=== PATIENT | female | born 1950 | race Caucasian/White ===

== ENCOUNTER 2016-11-13 14:36 | Inpatient (IN) | payer MEDICARE, OTHER ==
[2016-11-13] MEDS ORDERED: PREDNISONE5 M1 PO (15:12)
[2016-11-13] MEDS ORDERED: VENTOLIN HFA18 G2 INH (15:12)
[2016-11-13] MEDS ORDERED: VITAMIN D32000 UNI2 PO (15:12)
[2016-11-13] MEDS ORDERED: SERTRALINE HCL100 M5 PO (15:12)
[2016-11-13] MEDS ORDERED: ZYRTEC10 M7 PO (15:13)
[2016-11-13] MEDS ORDERED: COUMADIN5 M2 PO ×2 (15:13→15:34)
[2016-11-13] MEDS ORDERED: SYNTHROID150 MC1 PO (15:13)
[2016-11-13] MEDS ORDERED: PLAQUENIL200 M1 PO (15:13)
[2016-11-13] MEDS ORDERED: ADVAIR 25028 BLISTE1 INH (15:35)
[2016-11-13] MEDS ORDERED: IPRAT-ALBUT 0.5-3 ML INH (15:36)
[2016-11-13] MEDS ORDERED: ALBUTEROL2.5 MG/3 M INH (15:36)
[2016-11-13] MEDS ORDERED: ASPIRIN EC81 MG PO (15:40)
[2016-11-13] MEDS ORDERED: CIMZIA400 MG/21 SC (15:40)
[2016-11-13 16:13] LABS: BASO % 0.6 % (0-2); BASO ABSOLUTE COUNT 0.1 tho/cmm (0.0-0.2); EOS % 0.5 % (0-7); EOSINOPHIL ABSOLUTE COUNT 0.1 tho/cmm (0.0-0.7); HCT-HEMATOCRIT 46.6 % (34.0-49.0); HGB-HEMOGLOBIN 15.5 gm/dl (12.0-15.5); IMMATURE GRANULOCYTES ABSOLUTE 0.13 tho/cmm (0-0.03); IMMATURE GRANULOCYTES PERCENT 1.1 % (0-0.3); LYMPH % 13.4 % (20-45); LYMPH ABSOLUTE COUNT 1.6 tho/cmm (0.8-4.5); MCH (MEAN CORPUSCULAR HGB) 29.5 pg (28.0-32.0); MCHC MEAN CORPUSCULAR HGB CONC 33.3 % (32.0-36.0); MCV (MEAN CELL VOLUME) 88.8 fl (82.0-96.0); MONOCYTE ABSOLUTE COUNT 0.5 tho/cmm (0.0-1.2); NEUTROPHIL ABSOLUTE COUNT 9.8 tho/cmm (1.6-8.0); NEUTROPHIL-AUTOMATED 9.8 tho/cmm (1.6-8.0); NEUTROPHILS % 80.4 % (40-80); PLATELET COUNT 357 tho/cmm (150-450); RED BLOOD COUNT 5.25 mil/cmm (4.00-5.20); RED CELL DISTRIBUTION WIDTH 14.5 % (12.4-16.4); WHITE BLOOD COUNT 12.2 tho/cmm (4.0-10.0)
[2016-11-13 16:18] LABS: ANION GAP 13 mmol/L (0-20); BLOOD UREA NITROGEN 9 mg/dl (6-24); CALCIUM 9.1 mg/dl (8.5-10.5); CARBON DIOXIDE-VENOUS 28 mmol/L (22-32); CHLORIDE 103 mmol/l (96-110); CREATININE 0.86 mg/dl (0.50-1.10); GLUCOSE 156 mg/dL (70-110); POTASSIUM 4.1 mmol/L (3.7-5.1); SODIUM 140 mmol/L (135-145); eGFR VALUE FOR BLACK 81 mL/Min
[2016-11-13 16:43] LABS: WBC MORPHOLOGY VARIANT LYMPHS
[2016-11-13 17:01] LABS: INR 2.4 INR (0.9-1.1)
--- NOTE | 2016-11-13 20:30 | NUR ---
VIRTUAL CARE NOTE: PT. IN BED WITH O2 ON, STATES SHE'S FEELING OKAY AND DOESN'T HAVE ANY NEEDS OR QUESTIONS AT THIS TIME. INSTRUCTED TO CALL FOR FUTURE NEEDS. STATES VERBAL AGREEMENT.
[2016-11-14 04:52] LABS: BASO % 0.5 % (0-2); BASO ABSOLUTE COUNT 0.1 tho/cmm (0.0-0.2); HCT-HEMATOCRIT 44.9 % (34.0-49.0); HGB-HEMOGLOBIN 14.7 gm/dl (12.0-15.5); IMMATURE GRANULOCYTES ABSOLUTE 0.18 tho/cmm (0-0.03); IMMATURE GRANULOCYTES PERCENT 1.5 % (0-0.3); LYMPH % 16.1 % (20-45); MCH (MEAN CORPUSCULAR HGB) 29.3 pg (28.0-32.0); MCHC MEAN CORPUSCULAR HGB CONC 32.7 % (32.0-36.0); MCV (MEAN CELL VOLUME) 89.4 fl (82.0-96.0); MEAN PLATELET VOLUME 9.6 cmc (9.4-12.4); MONO % 4.4 % (0-12); MONOCYTE ABSOLUTE COUNT 0.5 tho/cmm (0.0-1.2); NEUTROPHIL ABSOLUTE COUNT 9.6 tho/cmm (1.6-8.0); NEUTROPHIL-AUTOMATED 9.6 tho/cmm (1.6-8.0); NEUTROPHILS % 77.5 % (40-80); PLATELET COUNT 334 tho/cmm (150-450); RED BLOOD COUNT 5.02 mil/cmm (4.00-5.20); RED CELL DISTRIBUTION WIDTH 14.7 % (12.4-16.4); WHITE BLOOD COUNT 12.4 tho/cmm (4.0-10.0)
[2016-11-14 05:03] LABS: INR 3.1 INR (0.9-1.1); PROTHROMBIN TIME 36.8 SECONDS (9.0-13.6)
[2016-11-14 05:12] LABS: BLOOD UREA NITROGEN 11 mg/dl (6-24); CALCIUM 8.3 mg/dl (8.5-10.5); CARBON DIOXIDE-VENOUS 29 mmol/L (22-32); CHLORIDE 108 mmol/l (96-110); GLUCOSE 118 mg/dL (70-110); SODIUM 144 mmol/L (135-145); eGFR VALUE FOR BLACK 88 mL/Min
[2016-11-14 05:24] LABS: ANION GAP 12 mmol/L (0-20); POTASSIUM 5.1 mmol/L (3.7-5.1)
[2016-11-15 05:58] LABS: PROTHROMBIN TIME 23.9 SECONDS (9.0-13.6)
[2016-11-15 06:01] LABS: BASO % 0.1 % (0-2); HCT-HEMATOCRIT 44.4 % (34.0-49.0); HGB-HEMOGLOBIN 14.6 gm/dl (12.0-15.5); IMMATURE GRANULOCYTES ABSOLUTE 0.28 tho/cmm (0-0.03); IMMATURE GRANULOCYTES PERCENT 1.8 % (0-0.3); LYMPH % 10.9 % (20-45); LYMPH ABSOLUTE COUNT 1.7 tho/cmm (0.8-4.5); MCH (MEAN CORPUSCULAR HGB) 29.2 pg (28.0-32.0); MCHC MEAN CORPUSCULAR HGB CONC 32.9 % (32.0-36.0); MCV (MEAN CELL VOLUME) 88.8 fl (82.0-96.0); MEAN PLATELET VOLUME 9.8 cmc (9.4-12.4); MONO % 2.8 % (0-12); MONOCYTE ABSOLUTE COUNT 0.4 tho/cmm (0.0-1.2); NEUTROPHIL ABSOLUTE COUNT 12.9 tho/cmm (1.6-8.0); NEUTROPHIL-AUTOMATED 12.9 tho/cmm (1.6-8.0); NEUTROPHILS % 84.4 % (40-80); PLATELET COUNT 362 tho/cmm (150-450); RED CELL DISTRIBUTION WIDTH 14.6 % (12.4-16.4); WHITE BLOOD COUNT 15.3 tho/cmm (4.0-10.0)
[2016-11-15 06:03] LABS: ANION GAP 11 mmol/L (0-20); BLOOD UREA NITROGEN 15 mg/dl (6-24); CALCIUM 8.6 mg/dl (8.5-10.5); CARBON DIOXIDE-VENOUS 27 mmol/L (22-32); CHLORIDE 106 mmol/l (96-110); CREATININE 0.68 mg/dl (0.50-1.10); GLUCOSE 124 mg/dL (70-110); SODIUM 140 mmol/L (135-145); eGFR VALUE FOR BLACK >90 mL/Min
[2016-11-15 06:05] LABS: POTASSIUM 4.1 mmol/L (3.7-5.1)
[2016-11-15] MEDS ORDERED: AZITHROMYCIN250 M1 PO (14:02)
[2016-11-15] MEDS ORDERED: PREDNISONE10 M1 PO (14:03)
[2016-11-15] MEDS ORDERED: ANORO ELLIPTA1 EAC1 INH (14:04)
[2016-11-15] MEDS ORDERED: STOP THE FOLLOWING: (14:05)
== END 2016-11-15 14:54 | DRG 189 ==
LOC: EDMED 14:36 → EMR2 18:33 → 5WD 18:42
PROVIDERS: Emergency Medicine; Family Medicine; Internal Medicine; ADMIT Hospitalist
DX: J96.01 Acute respiratory failure with hypoxia (principal); J44.1 Chronic obstructive pulmonary disease with (acute) exacerbation; Z99.81 Dependence on supplemental oxygen; D75.1 Secondary polycythemia; Z86.73 Personal history of transient ischemic attack (TIA), and cerebral infarction without residual deficits; Z79.01 Long term (current) use of anticoagulants; Z79.82 Long term (current) use of aspirin; E03.9 Hypothyroidism, unspecified; F32.9 Major depressive disorder, single episode, unspecified; M06.9 Rheumatoid arthritis, unspecified; Z88.0 Allergy status to penicillin; Z91.041 Radiographic dye allergy status; Z91.040 Latex allergy status; F17.210 Nicotine dependence, cigarettes, uncomplicated; Z71.6 Tobacco abuse counseling
CPT/HCPCS: C8929; J0456; J2930; J7030; J7050